=== PATIENT | male | born 1980 | race Caucasian/White ===

== ENCOUNTER 2024-06-10 11:18 | Emergency (ER) | payer BC, SELFPAY ==
--- NOTE | ~2024-06-10 | CT_ITS ---
CLINICAL HISTORY: right flank pain, hx stones CT abdomen and pelvis without contrast Comparison: None Findings: No consolidation or effusion. There is a 2.5 mm calculus within the bladder just beyond the right ureterovesicular junction with mild residual fullness of the right ureter and right renal collecting system. Several additional tiny bilateral renal calculi are present, measuring up to 3 mm. The prostate gland is mildly enlarged. Normal appendix. No bowel obstruction or free air. The liver, spleen, gallbladder, adrenal glands and pancreas are unremarkable. No acute osseous finding. Impression: There is a calculus just beyond the right ureterovesicular junction, within the bladder. Mild persistent fullness of the right renal collecting system and ureter. Additional bilateral renal calculi. This document has been electronically signed by: Cesar Mcclellan MD on 06/10/2024 12:34:07
[2024-06-10 11:22] VITALS: BP 149/66; PULSE 72; RESP 18; TEMP 36.6; O2SAT 96; BMI 32.3
--- NOTE | 2024-06-10 11:22 | ED.GENADULT ---
HPI - General Adult General Stated complaint: Kidney stones Time Seen by Provider: 06/10/24 11:29 Source: patient Mode of arrival: ambulatory Limitations: no limitations History of Present Illness ED Provider: ZOEY EL PA-C HPI narrative: 43 year old male presents to the ED today for evaluation of intermittent nonradiating right flank pain which began around 800 this morning. No blunt injury/ trauma. Admits to history of renal stones >10 years ago. He was able to pass the stone on his own. Admits this pain feels similar. He reports taking an old 5 mg Oxycodone, Flomax and zofran around 1030 this morning without improvement. Denies fever, chills, vomiting, urinary sx, constipation, or diarrhea. Denies testicular pain, penile discharge. Related Data Previous Rx's ?Medication ?Instructions ?Recorded ondansetron 4 mg disintegrating 4 mg PO DAILY PRN nausea and 06/10/24 tablet vomiting 5 days #7 tabs oxycodone 5 mg tablet 5 mg PO Q8H PRN pain (scale score 06/10/24 7-10) #9 tabs tamsulosin 0.4 mg capsule (Flomax) 0.4 mg PO BEDTIME 2 weeks #14 caps 06/10/24 Allergies Allergy/AdvReac Type Severity Reaction Status Date / Time No Known Allergies Allergy Verified 06/10/24 11:23 [No Known Allergies*] Review of Systems Review of Systems: Yes all other systems are reviewed and are negative [facility] Past Medical History Attestation statement: The following information was validated with the patient. Source: old records reviewed and nursing notes reviewed Social History Social History Smoked in Last 30 Days: No Use of substances other than those prescribed or required for medical reasons: No Advance Directives: No Advance Directives Information Provided: No Do you have a plan to hurt others: No Plan Physical Exam ED Vital Signs: Vital Signs - 24 hr 06/10/24 11:22 06/10/24 13:39 06/10/24 13:42 Temperature 97.8 F 98 F 98 F Pulse Rate 72 74 74 Respiratory Rate 18 18 18 Blood Pressure 149/66 H 148/89 H 148/89 H Pulse Oximetry 96 98 98 Oxygen Delivery Method Room Air Room Air Room Air BMI result Body Mass Index 32.3 hypertensive, vitals are otherwise wnl General: Uncomfortable appearing, sitting on the edge of the bed Skin: Warm, dry, intact. No rashes or lesions. Head: Normocephalic, atraumatic. EENT: Hearing is intact b/l. Conjunctiva clear. PERRLA. EOM intact. Moist mucous membranes.? Neck: Supple without LAD Cardiac: Chest wall symmetric. RRR Lungs: Normal respiratory effort without accessory muscle use. CTA bilaterally. Abdomen: Soft, nondistended, nontender to palpation. No rebound or guarding. Active bowel sounds x4. Right CVAT. Back: No midline spinous or paraspinal tenderness. No step off deformity. Ext: Upper and lower extremities atraumatic, without tenderness, deformity, swelling or erythema Neuro: AOx3. Normal speech. Ambulating with steady gait. Course Course Course Narrative: This is a rapid medical exam performed by James Wiley NP: Additional HPI, ROS, PE not included below will be deferred to primary provider. 06/10/24 11:23 Patient is a 43-year-old male with history of kidney stones presenting with acute onset R flank pain at 8am, states feels similar to previous stones. Last episode around 10 yrs ago. Took zofran, flomax and 5mg oxycodone all leftover from last episode. Unable to urinate this am. Plan: Labs, UA, meds and fluids ordered Reevaluation(s) Reevaluation #1: CBC without leukocytosis. No anemia. H&H stable. Chemistry without acute electrolyte abnormality requiring intervention. Random glucose 137. No INOCENCIA. Liver function WNL. Urine with moderate amount of blood and over 20 RBCs likely indicating ureteral stone. no urinary trace infection. ct a/p showing 2.5 mm calculus within the urinary bladder just before right UVJ with mild residual fullness of the right ureter and right renal collecting system. there are several additional tiny bilateral renal calculi w/ largest measuring 3mm. prostate mildly enlarged. ct otherwise unremarkable > no evidence of obstructing stone. on re-evaluation, patient reports improvement in pain with morphine/toradol/IVF. he is well appearing, actually sleeping on exam bed on my entrance into room. > discussed all work up results with patient. will send flomax, morphine, and oxycodone to pharmacy. advised tylenol/motrin. urology referral provided, advised to f/u. Patient has remained stable throughout ED visit today. Discussed worrisome signs and symptoms and when to return to the ED. All questions answered at this time. Patient is agreeable with disposition and stable for discharge. Medications Administered Discontinued Medications Generic Name Dose Route Start Last Admin Trade Name Shazia PRN Reason Stop Dose Admin Sodium Chloride 1,000 mls @ 999 mls/hr 06/10/24 11:30 06/10/24 12:43 Ns IV 06/10/24 12:30 Infused .Q1H1M CARRILLO Infusion Ketorolac Tromethamine 15 mg 06/10/24 11:24 06/10/24 11:42 Ketorolac Tromethamine 15 Mg/Ml Vial IVPUSH 06/10/24 11:25 15 mg ONCE ONE Administration Morphine Sulfate 4 mg 06/10/24 11:24 06/10/24 11:42 Morphine Sulfate 4 Mg/Ml Cartridge IVPUSH 06/10/24 11:25 4 mg ONCE ONE Administration Protocol Medical Decision Making Medical Decision Making [facility] Narrative: 43 year old male presents to the ED today for evaluation of intermittent nonradiating right flank pain which began around 800 this morning. hypertensive, likely secondary to pain. vitals are otherwise wnl. he is uncomfortable appearing, seated on the edge of the bed, rocking. there is right CVAT. abd soft, ND/NT, no rebound or guarding. actvie bsx4. no midline spinous tenderness. Differential diagnoses: renal colic, nephrolithiasis, hydronephrosis Abdominal exam without peritoneal signs. No evidence of acute abdomen at this time. Low suspicion for acute hepatobiliary disease (including acute cholecystitis), acute infectious processes (pneumonia, hepatitis, pyelonephritis), vascular catastrophe, bowel obstruction or viscus perforation, testicular torsion, orchitis, epidydymitis. Presentation not consistent with other acute, emergent causes of abdominal pain at this time. Plan: labs, UA, CT AP, pain control, fluids, serial reassessment Differential Diagnosis Differential Diagnoses: The differential diagnosis associated with the presentation includes as above. Admission/Observation not indicated. Lab Data [facility] Lab Attestation statement: I reviewed the patient's lab results. as above. 06/10/24 11:38 06/10/24 11:38 Labs: Lab Results 06/10/24 06/10/24 Range/Units 11:38 11:46 WBC 8.3 (4.8-10.8) X10*3/uL RBC 5.02 (4.60-5.80) X10*6/uL Hgb 14.4 (14.0-18.0) g/dl Hct 41.5 L (42.0-52.0) % MCV 82.7 (80.0-98.0) fL MCH 28.7 (27.0-33.0) pg MCHC 34.7 (31.0-36.0) g/dl RDW 11.9 (11.0-16.0) % Plt Count 253 (160-400) X10*3/uL MPV 9.7 (9.4-12.4) fL Immature Gran % (Auto) 0.6 H (0.0-0.4) % Neut % (Auto) 83.5 H (45-73) % Lymph % (Auto) 12.0 L (20-40) % Clare % (Auto) 2.8 (2-11) % Eos % (Auto) 0.6 (0-4) % Baso % (Auto) 0.5 (0-2) % Lymph # (Auto) 1.0 L (1.2-4.9) X10*3/uL Clare # (Auto) 0.2 (0.1-1.2) X10*3/uL Eos # (Auto) 0.1 (0.0-0.4) X10*3/uL Baso # (Auto) 0.0 (0.0-0.2) X10*3/uL Abs Immat Gran (auto) 0.05 H (0.00-0.03) X10*3/uL Absolute Neuts (auto) 6.9 (2.0-8.3) x10*3/uL Absolute Nucleated RBC 0.000 (0.0-0.012) X10*3/uL Nucleated RBC % (auto) 0.0 (0.0-0.2) /100WBC Sodium 143 (135-145) mmol/L Potassium 4.3 (3.3-5.1) mmol/L Chloride 110 H (96-108) mmol/L Carbon Dioxide 27 (22-29) mmol/L Anion Gap 10 L (12-20) BUN 13 (9-16) mg/dL Creatinine 1.24 (0.5-1.4) mg/dL Estim Creat Clear Calc 90.9 Estimated GFR > 60 Random Glucose 137 H (60-115) mg/dL Calcium 8.9 (8.4-10.2) mg/dL Total Bilirubin 0.5 (0.0-1.0) mg/dL AST 21 (5-37) U/L ALT 22 (0-40) U/L Alkaline Phosphatase 70 (39-117) U/L Total Protein 7.3 (6.5-8.0) g/dL Albumin 4.4 (3.5-5.0) g/dL Urine Color Yellow Urine Appearance Clear Urine pH 5.5 (5.0-9.0) Ur Specific [place] 1.020 (1.005-1.025) Urine Protein Negative (Neg-Trace) mg/dL Urine Glucose (UA) Negative (Negative) mg/dL Urine Ketones Negative (Negative) mg/dL Urine Blood Moderate (2+) H (Negative) Urine Nitrite Negative (Negative) Ur Leukocyte Esterase Negative (Negative) Urine RBC >20 H (0-2) /HPF Urine WBC 0-5 (0-5) /HPF Ur Squamous Epith Cells 0-2 (0-2) /HPF Urine Bacteria None Seen (None Seen) Hyaline Casts 0-2 (0-2) /LPF Independent Interpretation I performed an independent interpretation of an: CT Scan Interpretation: ct a/p with small stone in urinary bladder Radiology Impression Discussion of test interpretation with radiology: I have reviewed the radiologist's reading. Radiologist Impression: Procedure(s): CT abdomen pelvis wo IV con Accession Number(s): [id number] cc: Physician,Unknown ; Zoey El~ Report Number: [id number]: Total DLP = 663.00 mGy-cm CLINICAL HISTORY: right flank pain, hx stones CT abdomen and pelvis without contrast Comparison: None Findings: No consolidation or effusion. There is a 2.5 mm calculus within the bladder just beyond the right ureterovesicular junction with mild residual fullness of the right ureter and right renal collecting system. Several additional tiny bilateral renal calculi are present, measuring up to 3 mm. The prostate gland is mildly enlarged. Normal appendix. No bowel obstruction or free air. The liver, spleen, gallbladder, adrenal glands and pancreas are unremarkable. No acute osseous finding. Impression: There is a calculus just beyond the right ureterovesicular junction, within the bladder. Mild persistent fullness of the right renal collecting system and ureter. Additional bilateral renal calculi. Prescription Management I considered prescription management with: Pain Medication Social Determinants Patient?s care significantly limited by Social Determinants of Health including: Other Social Determinant of Health Critical Care Time Critical Care Time Critical Care Time: No Discharge Plan Discharge Clinical Impression: Bilateral nephrolithiasis Patient Disposition: Home, Self-Care Instructions: Kidney Stones (ED) Additional Instructions: You were evaluated in the ED today for right flank pain. Your blood work is reassuring. Your urine is positive for blood, no infection. The CT scan of your abdomen shows a passed 2.5 mm stone within your bladder. There are also multiple stone within either kidney, the largest measuring 3mm. You will likely start passing these. There are no obstructing stones. I am sending Flomax to your pharmacy. Take this every day as prescribed to help pass the stones. I recommend taking this before bed as it can cause a drop in your blood pressure. I recommend you take 600mg ibuprofen every 6 hours or Tylenol 650mg every 6 hours as needed for pain. If needed, you can alternate these medications so that you take one medication every 3 hours. For example, at noon take ibuprofen, then at 3pm take Tylenol, then at 6pm take ibuprofen. I am sending oxycodone to your pharmacy for you to take as needed for break through pain. Use this with caution as this is a controlled pain medication and has addictive properties. Zofran has been sent to your pharmacy for nausea/ vomiting. Follow up with urology. Call them to establish care. They will not call you. Return with new or worsening symptoms. In the case of an emergency call 911. Prescriptions: New ondansetron 4 mg tablet,disintegrating 4 mg PO DAILY PRN (Reason: nausea and vomiting) 5 Days Qty: 7 0RF oxycodone 5 mg tablet 5 mg PO Q8H PRN (Reason: pain (scale score 7-10)) Qty: 9 0RF Rx Instructions: Partial Fill upon patient request. tamsulosin [Flomax] 0.4 mg capsule 0.4 mg PO BEDTIME 14 Days Qty: 14 0RF Referrals: [facility] [Provider Group] - 3 days (There is a 2.5 mm calculus within the bladder just beyond the right ureterovesicular junction with mild residual fullness of the right ureter and right renal collecting system. Several additional tiny bilateral renal calculi are present, measuring up to 3 mm. The prostate gland is mildly enlarged.) Interventions: ED Discharge Assessment Last Done: 06/10/24 13:42 Discharge Date/Time: 06/10/24 13:42 Print Language: Lithuanian
[2024-06-10 11:42] LABS: MANUAL DIFF FLAG NO
[2024-06-10] MEDS: Ketorolac Tromethamine 15 MG/ML VIAL IVPUSH (11:42)
[2024-06-10] MEDS: 0.9 % Sodium Chloride 1,000 ML 999 ML IV (11:42)
[2024-06-10] MEDS: Morphine Sulfate 4 MG/ML CARTRIDGE IVPUSH (11:42)
[2024-06-10 11:45] LABS: Basophils Percent Auto 0.5 % (0-2); Eosinophils Absolute Auto 0.1 X10*3/uL (0.0-0.4); Eosinophils Percent Auto 0.6 % (0-4); Hematocrit 41.5 % (42.0-52.0); Hemoglobin 14.4 g/dl (14.0-18.0); Imm Gran Abs Auto 0.05 X10*3/uL (0.00-0.03); Imm Gran Pct Auto 0.6 % (0.0-0.4); Mean Corpuscular HGB Conc 34.7 g/dl (31.0-36.0); Mean Corpuscular Hemoglobin 28.7 pg (27.0-33.0); Mean Corpuscular Volume 82.7 fL (80.0-98.0); Mean Platelet Volume 9.7 fL (9.4-12.4); Monocytes Absolute Auto 0.2 X10*3/uL (0.1-1.2); Monocytes Percent Auto 2.8 % (2-11); Neutrophils Absolute Auto 6.9 x10*3/uL (2.0-8.3); Neutrophils Percent Auto 83.5 % (45-73); Platelet Count 253 X10*3/uL (160-400); Red Blood Count 5.02 X10*6/uL (4.60-5.80); Red Cell Distribution Width 11.9 % (11.0-16.0); White Blood Count 8.3 X10*3/uL (4.8-10.8)
[2024-06-10 11:53] LABS: Appearance Urine Clear; Color Urine Yellow; Glucose Urine UA Negative (Negative); Leukocyte Esterase Urine Negative (Negative); Nitrite Urine Negative (Negative); PH 5.5 (5.0-9.0); UMIC TRIGGER UACC YES; Urine Blood Moderate (2+) (Negative); Urine Ketones Negative (Negative); Urine Protein Negative (Neg-Trace)
[2024-06-10 11:55] LABS: Bacteria Urine None Seen (None Seen); Hyaline Casts Urine 0-2 /LPF (0-2); RBC Urine >20 /HPF (0-2); Squamous Epithelial Cell Urine 0-2 /HPF (0-2); WBC Urine 0-5 /HPF (0-5)
[2024-06-10 11:59] LABS: Alanine Aminotransferase 22 U/L (0-40); Albumin Level 4.4 g/dL (3.5-5.0); Alkaline Phosphatase 70 U/L (39-117); Anion Gap 10 (12-20); Aspartate Amino Transferase 21 U/L (5-37); Bilirubin Total 0.5 mg/dL (0.0-1.0); Blood Urea Nitrogen 13 mg/dL (9-16); Calcium 8.9 mg/dL (8.4-10.2); Carbon Dioxide 27 mmol/L (22-29); Chloride 110 mmol/L (96-108); Creatinine Clr Calc Pharmacy 90.9; Estimated Glomerular Filt Rate > 60; Glucose Random 137 mg/dL (60-115); Potassium 4.3 mmol/L (3.3-5.1); Sodium 143 mmol/L (135-145); Total Protein 7.3 g/dL (6.5-8.0)
[2024-06-10 13:39] VITALS: BP 148/89; PULSE 74; RESP 18; TEMP 36.6; O2SAT 98
[2024-06-10 13:42] VITALS: BP 148/89; PULSE 74; RESP 18; TEMP 36.6; O2SAT 98
== END 2024-06-10 13:42 | disposition home or self-care (01) ==
PROVIDERS: Registered Nurse Emergency; Emergency Provider Emergency Medicine
DX: N20.0 Calculus of kidney (principal); R10.2 Pelvic and perineal pain; R11.0 Nausea; Z79.899 Other long term (current) drug therapy
CPT/HCPCS: 36415; 74176; 80053; 81001; 85025; 96361; 96374; 96375; 99284; 99285; J1885; J2270

== ENCOUNTER → 2024-06-10 11:35 | Outpatient (BNV) | payer BC, SELFPAY | PROVIDERS: Emergency Provider Emergency Medicine; Visit Provider Radiology Vascular & Interventional Radiology | DX: N20.0 Calculus of kidney (principal); N21.0 Calculus in bladder | CPT/HCPCS: 74176 ==